=== PATIENT | female | born 1995 | race Caucasian/White ===

== ENCOUNTER 2019-12-21 20:29 | Emergency (ER) | payer BC ==
[~2019-12-21] VITALS: Ht 162.6 cm; Wt 75.0 kg
[2019-12-21] MEDS ORDERED: ONDANSETRON ODT 4 MG TAB.RAPDIS. PO ONE (21:15)
[2019-12-21] MEDS ORDERED: ONDANSETRON PF 4 MG/2 ML VIAL. IV ONE (21:30)
[2019-12-21] MEDS ORDERED: IV NORMAL SALINE 1000ML BAG 1,000 ML IV ONE (21:30)
[2019-12-21] MEDS ORDERED: FAMOTIDINE 20 MG/2 ML VIAL IVP ONE (22:00)
--- NOTE | 2019-12-21 22:05 | PHYS DOC ---
Past Medical History Past Medical History: No Pertinent History Smoking Status: Never Smoker Alcohol Use: None General Adult EDM: Chief Complaint: NAUSEA/VOMITING/DIARRHA HPI: HPI: Patient is a 24 year old female who presents to the emergency department with complaints of nausea, and vomiting since 1830 this evening. Patient states that she had last eaten food from a local [employer] restaurant at approximately 1430 this afternoon. She denies any abdominal pain, fever, cough, shortness of breath, body aches, or fatigue. She states that she did have one episode of loose stool this afternoon. Patient complains of a headache at this time that she rates a 8 out of 10 on the pain scale and states is behind her left eye. Patient states this headache is similar to previous migraines. Patient states she often has problems with nausea and vomiting when she has headaches. She denies any vision changes, dizziness, numbness, tingling, or weakness. Review of Systems: Review of Systems: Constitutional: Denies fever or chills. [] Eyes: Denies change in visual acuity. [] HENT: Denies nasal congestion or sore throat. [] Respiratory: Denies cough or shortness of breath. [] Cardiovascular: Denies chest pain or edema. [] GI: See HPI : Denies dysuria. [] Musculoskeletal: Denies back pain or joint pain. [] Integument: Denies rash. [] Neurologic: Denies focal weakness or sensory changes; see HPI [] Lymphatic: Denies swollen glands. [] Psychiatric: Denies depression or anxiety. [] Heart Score: Risk Factors: Risk Factors: DM, Current or recent (<one month) smoker, HTN, HLP, family history of CAD, obesity. Risk Scores: Score 0 - 3: 2.5% MACE over next 6 weeks - Discharge Home Score 4 - 6: 20.3% MACE over next 6 weeks - Admit for Clinical Observation Score 7 - 10: 72.7% MACE over next 6 weeks - Early Invasive Strategies Current Medications: Current Medications Medications (Trade) Dose Ordered Sig/Rickie Start Time Stop Time Status Last Admin Dose Admin Famotidine (Pepcid Vial) 20 mg 1X ONCE 12/21/19 22:00 12/21/19 22:01 12/21/19 21:49 20 MG Ondansetron HCl (Zofran Odt) 4 mg 1X ONCE 12/21/19 21:15 12/21/19 21:10 DC Ondansetron HCl (Zofran) 4 mg 1X ONCE 12/21/19 21:30 12/21/19 21:31 DC 12/21/19 21:17 4 MG Sodium Chloride 1,000 ml @ 1,000 mls/hr 1X ONCE 12/21/19 21:30 12/21/19 22:29 12/21/19 21:17 1,000 MLS/HR Allergies: Allergies: Allergies Coded Allergies Type Severity Reaction Last Updated Verified No Known Drug Allergies 12/21/19 No Physical Exam: PE: Constitutional: Well developed, well nourished, no acute distress, non-toxic appearance, obese. [] HENT: Normocephalic, atraumatic, bilateral external ears normal, oropharynx moist, no oral exudates, nose normal. [] Eyes: PERRLA, EOMI, conjunctiva normal, no discharge. [] Neck: Normal range of motion, no stridor. [] Cardiovascular:Heart rate regular rhythm, no murmur [] Lungs & Thorax: Bilateral breath sounds clear to auscultation, Respirations even and unlabored, no retractions, no respiratory distress [] Abdomen: Bowel sounds normal, soft, no tenderness, no masses, no pulsatile masses. [] Skin: Warm, dry, no erythema, no rash. [] Extremities: No cyanosis, ROM intact, no edema. [] Neurologic: Alert and oriented X 3, no focal deficits noted. [] Psychologic: Affect normal, judgement normal, mood normal. [] Current Patient Data: Vital Signs: Vital Signs Date Time Temp Pulse Resp B/P (MAP) Pulse Ox O2 Delivery O2 Flow Rate FiO2 12/21/19 20:37 97.7 90 18 115/64 (81) 97 Room Air 97.7 EKG: EKG: [] Radiology/Procedures: Radiology/Procedures: [] Course & Med Decision Making: Course & Med Decision Making Pertinent Labs and Imaging studies reviewed. (See chart for details) Patient is a 24-year-old female who presents emergency room with complaints of nausea, vomiting, and a headache. Patient states that the headache is similar to her previous migraines. Patient was given a liter of normal saline, and 4 mg of Zofran. Her nausea improved after this medication however the patient continued to complain of a headache behind her left eye. A qualitative test was done patient's hCG is negative. She was given 10 mg of Decadron, 25 mg of Benadryl, and 15 mg of Toradol. Patient stated that her headache was a 3 out of 10 after these medications. She reported feeling better and stated she would like to go home. Prescription written for Fioricet to take as needed. Patient to follow-up with primary care doctor this week, return to the ER symptoms worsen. Patient verbalized an understanding of home care, medications, follow-up, and return to ED instructions and was in agreement with the plan of care. [] Dragon Disclaimer: Dragon Disclaimer: This electronic medical record was generated, in whole or in part, using a voice recognition dictation system. Departure Departure Impression: Primary Impression: Migraine Qualified Codes: G43.909 - Migraine, unspecified, not intractable, without status migrainosus Additional Impression: Nausea & vomiting Qualified Codes: R11.2 - Nausea with vomiting, unspecified Disposition: 01 HOME, SELF-CARE Condition: STABLE Referrals: NO PCP (PCP) Patient Instructions: Migraine Headache, [id number], Nausea and Vomiting, [id number] Additional Instructions: Fill the prescription and take as directed. Home to rest in a cool, dark room. Avoid screen exposure. Follow-up with your primary care doctor this week, return to the ER if symptoms worsen. Scripts Butalb/Acetaminophen/Caffeine ([id number] [id number]) 1 Each Tablet 1-2 EACH PO Q4HRS PRN for PAIN MDD 6 tabs for 3 Days, #18 TAB 0 Refills Prov: STAS IVEY WEIGH MACHINE OPERATOR 12/21/19 STAS IVEY WEIGH MACHINE OPERATOR Dec 21, 2019 22:05
[2019-12-21 22:19] LABS: PREG TEST PT QUAL NEGATIVE (NEG)
[2019-12-21 22:22] VITALS: BP 101/58
[2019-12-21] MEDS ORDERED: KETOROLAC 15 MG/ML VIAL. IV ONE (22:30)
[2019-12-21] MEDS ORDERED: DEXAMETHASONE SOD PHOS 20 MG/5 ML VIAL. IV ONE (22:30)
[2019-12-21] MEDS ORDERED: diphenhydrAMINE 50 MG/ML VIAL IVP ONE (22:30)
[2019-12-21] MEDS ORDERED: BUTA1TAB23 PO (22:49)
== END 2019-12-21 23:00 | disposition home or self-care (01) ==
LOC: ER 20:29
DX: G43.909 Migraine, unspecified, not intractable, without status migrainosus (principal); R11.2 Nausea with vomiting, unspecified; R19.7 Diarrhea, unspecified
CPT/HCPCS: 84703; 96361; 96374; 96375; 99284; J1100; J1200; J1885; J2405; J3490; J7030; 99285